=== PATIENT | male | born 1995 | race Caucasian/White ===

== ENCOUNTER 2017-08-24 19:55 | Emergency (ER) | payer SELFPAY ==
[~2017-08-24] VITALS: Ht 175.3 cm; Wt 71.7 kg
[2017-08-24 20:00] VITALS: BP 139/65
--- NOTE | 2017-08-24 20:02 | NUR ---
PATIENT AMBULATED TO ER CHAIR B.
--- NOTE | 2017-08-24 20:05 | NUR ---
DR HERNÁNDEZ AT BEDSIDE
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
--- NOTE | 2017-08-24 20:15 | NUR ---
PT.TAKEN TO XRAY
--- NOTE | 2017-08-24 20:30 | NUR ---
PT.BACK FORM XRAY
--- NOTE | 2017-08-24 21:25 | NUR ---
Patient discharged with v/s stable. Written and verbal after care instructions given and explained. Patient alert, oriented and verbalized understanding of instructions. Ambulatory with steady gait. All questions addressed prior to discharge. ID band removed. Patient advised to follow up with PMD. Rx of NAPROSYN 500 MG given. Patient educated on indication of medication including possible reaction and side effects. Opportunity to ask questions provided and answered.
[2017-08-24 21:26] VITALS: BP 120/60
== END 2017-08-24 21:25 | disposition home or self-care (01) ==
LOC: MED 19:55
DX: S33.5XXA Sprain of ligaments of lumbar spine, initial encounter (principal); V74.6XXA Passenger on bus injured in collision with heavy transport vehicle or bus in traffic accident, initial encounter; Y93.I9 Activity, other involving external motion; Y92.488 Other paved roadways as the place of occurrence of the external cause; Y99.8 Other external cause status
CPT/HCPCS: 72110; 99284